=== PATIENT | female | born 1965 | race Asian ===

== ENCOUNTER 2020-09-28 17:47 | Emergency (ER) | payer MEDICAID ==
[~2020-09-28] VITALS: Ht 157.5 cm; Wt 72.7 kg
[2020-09-28 18:15] VITALS: BP 171/85
[2020-09-28] MEDS ORDERED: PRED-220 PO (18:30)
[2020-09-28] MEDS ORDERED: HYDR25TA PO (18:30)
[2020-09-28] MEDS ORDERED: ACYC800T88 PO (18:30)
--- NOTE | 2020-09-28 18:31 | PHYS DOC ---
Past Medical History Past Medical History: No Pertinent History Past Surgical History: No Surgical History Smoking Status: Current Every Day Smoker Alcohol Use: None General Adult EDM: Chief Complaint: SKIN RASH/ABSCESS HPI: HPI: Patient is a 55 year old female who presents to the ED today with a rash on the right upper chest and back that began 1 week ago. Patient states the rash is very painful. Denies any fever Review of Systems: Review of Systems: Constitutional: Denies fever or chills. [] Musculoskeletal: Denies back pain or joint pain. [] Integument: Reports of rash to the upper back and upper chest Neurologic: Denies headache, focal weakness or sensory changes. [] Psychiatric: Denies depression or anxiety. [] Heart Score: C/O Chest Pain: N/A Risk Factors: Risk Factors: DM, Current or recent (<one month) smoker, HTN, HLP, family history of CAD, obesity. Risk Scores: Score 0 - 3: 2.5% MACE over next 6 weeks - Discharge Home Score 4 - 6: 20.3% MACE over next 6 weeks - Admit for Clinical Observation Score 7 - 10: 72.7% MACE over next 6 weeks - Early Invasive Strategies Allergies: Allergies: Allergies Coded Allergies Type Severity Reaction Last Updated Verified No Known Drug Allergies 09/28/20 No Physical Exam: PE: Constitutional: Well developed, well nourished, no acute distress, non-toxic appearance. [] Skin: Grouped erythematous rash on the right upper chest and back consistent with shingles Back: No tenderness, no CVA tenderness. [] Extremities: No tenderness, no cyanosis, no clubbing, ROM intact, no edema. [] Neurologic: Alert and oriented X 3, normal motor function, normal sensory function, no focal deficits noted. [] Psychologic: Affect normal, judgement normal, mood normal. [] Current Patient Data: Vital Signs: Vital Signs Date Time Temp Pulse Resp B/P (MAP) Pulse Ox O2 Delivery O2 Flow Rate FiO2 09/28/20 18:15 98.0 87 20 171/85 (113) 99 Room Air 98.0 EKG: EKG: [] Radiology/Procedures: Radiology/Procedures: [] Course & Med Decision Making: Course & Med Decision Making Pertinent Labs and Imaging studies reviewed. (See chart for details) This is a 55-year-old female patient with shingles. Discharge to home. Follow- up with PCP in 2 weeks. Educated on the contagious nature of the disease Daniel Disclaimer: Daniel Disclaimer: This electronic medical record was generated, in whole or in part, using a voice recognition dictation system. Departure Departure Impression: Primary Impression: Shingles Qualified Codes: B02.9 - Zoster without complications Disposition: HOME / SELF CARE / HOMELESS Condition: STABLE Patient Instructions: Shingles Additional Instructions: You were seen for shingles rash, this is a contagious rash, do not be around children or people. Take the prescribed medications as ordered. Follow-up with your doctor in 1 week Scripts Hydroxyzine Hcl (HYDROXYZINE HCL) 25 Mg Tablet 1 TAB PO TID, #30 TAB Prov: POP SCHNEIDER APRN 09/28/20 Acyclovir (ACYCLOVIR) 800 Mg Tablet 1 TAB PO 5XDAY, #50 TAB Prov: POP SCHNEIDER APRN 09/28/20 Prednisone (PREDNISONE ) 10 Mg Tablet 10 MG PO UD for PREDNISONE TAPER, #39 TAB 0 Refills Take 3 tablets by mouth twice a day for 3 days, then take 2 tablets by mouth twice a day for 3 days, then take 1 tablet by mouth twice a day for 3 days, then take 1 tablet by mouth daily x 3 days, then stop. Prov: POP SCHNEIDER APRN 09/28/20 POP SCHNEIDER APRN Sep 28, 2020 18:31
[2020-09-28] MEDS ORDERED: TRAM50TA PO (19:51)
[2020-09-28] MEDS ORDERED: HYDR-2761 PO (20:30)
== END 2020-09-28 18:37 | disposition home or self-care (01) ==
LOC: ER 17:47
DX: B02.9 Zoster without complications (principal); F17.200 Nicotine dependence, unspecified, uncomplicated
CPT/HCPCS: 99283